=== PATIENT | male | born 1940 | race Caucasian/White ===

== ENCOUNTER → 2024-03-29 | Outpatient (CLI) | payer MEDICARE ==
[~2024-03-29] MED LIST: ATOR20TA65 PO; FINA5TAB41 PO; HYDR50TA PO; LISI10TA24 PO; METF-910 PO; TADA5TAB PO; TAMS-1 PO
== END | disposition home or self-care (01) ==
LOC: RAH 11:23
DX: M47.26 Other spondylosis with radiculopathy, lumbar region (principal); M54.42 Lumbago with sciatica, left side
CPT/HCPCS: 72100